=== PATIENT | female | born 1985 | race American Indian/Alaskan Native ===

== ENCOUNTER 2016-12-16 19:51 | Emergency (ER) | payer OTHER ==
[2016-12-16 19:59] VITALS: BP 119/68; PULSE 70; TEMP 98; BMI 21.2
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
== END 2016-12-16 20:44 | disposition home or self-care (01) ==
LOC: JERFT 19:51
DX: Z04.71 Encounter for examination and observation following alleged adult physical abuse (principal); Y07.59 Other non-family member, perpetrator of maltreatment and neglect; Y93.89 Activity, other specified; Y92.238 Other place in hospital as the place of occurrence of the external cause; Y99.0 Civilian activity done for income or pay
CPT/HCPCS: 99281-25

== ENCOUNTER 2017-11-13 13:29 | Emergency (ER) | payer OTHER ==
[2017-11-13 13:37] VITALS: BP 106/64; PULSE 97; TEMP 98.7; BMI 26.1
--- NOTE | 2017-11-13 14:30 | PDOC ---
History of Present Illness - General Chief Complaint: Cold Symptoms Stated Complaint: COUGH Time Seen by Provider: 11/13/17 13:55 - History of Present Illness Initial Comments: 11/13/17 14:23 CHIEF COMPLAINT: sore throat HISTORY OF PRESENT ILLNESS: 32 yo 29 wk F presents to [facility] with sore throat x 3 days. Patient reports that she has had family members that have been sick with fevers but she has not experienced any fever, chills, vomiting, or diarrhea. Patient reports that the pain is worse in the mornings when she wakes up and that she feels pain when she swallows. She denies any runny nose, congestion, or sneezing. PAST MEDICAL HISTORY: Denies past medical history FAMILY HISTORY: Denies SOCIAL HISTORY: Denies tobacco, alcohol, illicit drug use. SURGICAL HISTORY: Denies ALLERGIES: No known drug allergies REVIEW OF SYSTEMS General/Constitutional: Denies fever or chills. Denies weakness, weight change. HEENT: Sore throat. Cardiovascular: Denies chest pain or shortness of breath. Respiratory: Denies cough, wheezing, or hemoptysis. Gastrointestinal: Denies nausea, vomiting, diarrhea. Genitourinary: Denies dysuria, frequency, or change in urination. Musculoskeletal: Denies joint or muscle swelling or pain. Denies neck or back pain. Skin and breasts: Denies rash. PHYSICAL EXAM General Appearance: Well-appearing, appropriately dressed. No apparent distress. HEENT: Post nasal drip appreciated. Tonsils 1+ b/l, no exudate or erythema. EOMI, PERRLA. No conjunctival pallor. No photophobia, scleral icterus. Respiratory/Chest: Lungs CTAB. Cardiovascular: RRR. S1, S2. Gastrointestinal/Abdominal: Normal bowel sounds. Abdomen soft, non-distended. No tenderness or rebound tenderness. No organomegaly, pulsatile mass, guarding , hernia, hepatomegaly, splenomegaly. Musculoskeletal/Extremities: Normal inspection. FROM of all extremities, normal capillary refill. Pelvis Stable. No CVA tenderness. No tenderness to extremities, pedal edema, swelling, erythema or deformity. Integumentary: Appropriate color, dry, warm. No cyanosis, erythema, jaundice or rash Neurologic: c4 planner II-XII intact. Fully oriented, alert. Appropriate mood/affect. Motor strength 5/5. No appreciable EOM palsy, facial droop or sensory deficit. Past History - Past Medical History Allergies/Adverse Reactions: Allergies Allergy/AdvReac Type Severity Reaction Status Date / Time No Known Allergies Allergy Verified 11/13/17 13:30 Home Medications: Ambulatory Orders Tablet 1 tab PO DAILY 10/15/17 Loratadine 10 mg PO DAILY #14 capsule 11/13/17 COPD: No - Suicide/Smoking/Psychosocial Hx Smoking History: Never smoked Have you smoked in the past 12 months: No Number of Cigarettes Smoked Daily: 0 Information on smoking cessation initiated: No Hx Alcohol Use: No Drug/Substance Use Hx: No Substance Use Type: None *Physical Exam - Vital Signs Last Vital Signs Temp Pulse Resp BP Pulse Ox 98.7 F 97 H 18 106/64 100 11/13/17 13:31 11/13/17 13:31 11/13/17 13:31 11/13/17 13:31 11/13/17 13:31 Medical Decision Making - Medical Decision Making 11/13/17 14:30 32 yo 29 wk F presents to [facility] with sore throat x 3 days. -rapid strep 11/13/17 15:17 strep negative *DC/Admit/Observation/Transfer Diagnosis at time of Disposition: Sore throat - Discharge Dispostion Disposition: HOME Condition at time of disposition: Stable Admit: No - Prescriptions Prescriptions: Loratadine 10 mg PO DAILY #14 capsule - Referrals - Patient Instructions Printed Discharge Instructions: DI for Viral Pharyngitis Additional Instructions: Please take medications as prescribed and follow up with your primary care doctor within the next 2-3 days. If experience ANY abdominal pain, fever, vomiting, vaginal bleeding, or any new or worsening symptoms, please return to the ER. - Post Discharge Activity
== END 2017-11-13 15:30 | disposition home or self-care (01) ==
LOC: JERFT 13:29
DX: J02.9 Acute pharyngitis, unspecified (principal); B97.89 Other viral agents as the cause of diseases classified elsewhere; Z3A.29 29 weeks gestation of pregnancy
CPT/HCPCS: 87070; 87430; 99281-25